=== PATIENT | female | born 1930 | race African-American/Black ===

== ENCOUNTER 2018-03-17 22:21 | Inpatient (IN) | payer MEDICARE ==
[~2018-03-17] VITALS: Ht 152.4 cm; Wt 63.5 kg
[2018-03-18 01:00] VITALS: BP 156/78
[2018-03-18] MEDS ORDERED: Norco 5mg/325mg tab ORAL PRN (02:00)
[2018-03-18 04:00] VITALS: BP 149/65
[2018-03-18 07:25] LABS: BASOPHILS % (AUTO) 0.5 % (0.0-2.0); EOSINOPHILS % (AUTO) 0.4 % (0.0-3.0); HEMATOCRIT 38.4 % (37.0-47.0); HEMOGLOBIN 13.1 G/DL (12.0-16.0); LYMPHOCYTES % (AUTO) 23.9 % (20.0-45.0); MEAN CORPUSCULAR VOLUME 88 FL (80-99); MONOCYTES % (AUTO) 11.8 % (1.0-10.0); NEUTROPHILS % (AUTO) 63.4 % (45.0-75.0); PLATELET COUNT 229 K/UL (150-450); RED BLOOD COUNT 4.34 M/UL (4.20-5.40); RED CELL DISTRIBUTION WIDTH 12.1 % (11.6-14.8); WHITE BLOOD COUNT 6.5 K/UL (4.8-10.8)
[2018-03-18 07:54] LABS: ALANINE AMINOTRANSFERASE 17 U/L (12-78); ALBUMIN 2.9 G/DL (3.4-5.0); ALBUMIN/GLOBULIN RATIO 0.7 (1.0-2.7); ALKALINE PHOSPHATASE 59 U/L (46-116); ANION GAP 9 mmol/L (5-15); ASPARTATE AMINO TRANSFERASE 16 U/L (15-37); BILIRUBIN,TOTAL 0.6 MG/DL (0.2-1.0); BLOOD UREA NITROGEN 23 mg/dL (7-18); CALCIUM 9.2 MG/DL (8.5-10.1); CARBON DIOXIDE 27 MMOL/L (21-32); CHLORIDE 100 MMOL/L (98-107); CHOLESTEROL 163 MG/DL (< 200); CREATININE 0.9 MG/DL (0.55-1.30); HDL CHOLESTEROL 88 MG/DL (40-60); POTASSIUM 3.2 MMOL/L (3.5-5.1); SODIUM 136 MMOL/L (136-145); TRIGLYCERIDES 51 MG/DL (30-150)
[2018-03-18 08:00] VITALS: BP 151/75
[2018-03-18] MEDS: Aspirin Baby 81mg ORAL SCH (08:10)
[2018-03-18] MEDS: Carvedilol 6.25mg Tab ORAL SCH ×2 (08:11→21:00)
[2018-03-18] MEDS ORDERED: Influenza Vaccine Quadrivalent 0.5ml IM ONE (11:00)
[2018-03-18 12:00] VITALS: BP 131/64
[2018-03-18] MEDS: Heparin 5000 units/ml inj SUBQ SCH ×2 (13:58→21:33)
--- NOTE | 2018-03-18 14:21 | Consultation ---
History of Present Illness General Date patient seen: Mar 18, 2018 Present Illness HPI 88 year old female with PMHx of HTN, noncompliant presented to [facility] Emergency Room. The patient has complained of neck pain and headache. The patient was found to have blood pressure elevated to 255/96. she received initial treatment at [facility]. The patient is transferred to [facility] for insurance purposes. she is admitted to telemetry for further treatment. Allergies: Coded Allergies: PENICILLINS (Verified Allergy, Intermediate, Rash, 03/18/18) Medication History Scheduled Aspirin* (Aspirin*), 81 MG ORAL DAILY Carvedilol (Coreg), 12.5 MG ORAL EVERY 12 HOURS Irbesartan* (Avapro*), 75 MG ORAL DAILY Patient History Healthcare decision maker Resuscitation status Full Code Advanced Directive on File No Past Medical/Surgical History Past Medical/Surgical History: (1) History of colon cancer (2) History of hypertension Review of Systems All Other Systems: negative except mentioned in HPI Physical Exam General Appearance: WD/WN Lines, tubes and drains: peripheral HEENT: normocephalic, atraumatic Neck: non-tender, normal alignment Respiratory/Chest: chest wall non-tender, lungs clear Breasts: no masses Cardiovascular/Chest: normal peripheral pulses Abdomen: normal bowel sounds Genitourinary/Rectal: normal genital exam Last 24 Hour Vital Signs Date Time Temp Pulse Resp B/P (MAP) Pulse Ox O2 Delivery O2 Flow Rate FiO2 03/18/18 12:00 54 03/18/18 12:00 97.3 55 19 131/64 (86) 97 97.3 03/18/18 09:00 Room Air 03/18/18 08:11 73 151/75 03/18/18 08:00 98.1 73 20 151/75 (100) 97 98.1 03/18/18 08:00 75 03/18/18 04:00 79 03/18/18 04:00 98.1 76 20 149/65 (93) 97 98.1 03/18/18 02:06 72 03/18/18 01:46 Room Air 03/18/18 01:00 97.9 79 18 156/78 (104) 99 97.9 Laboratory Tests Test 03/18/18 06:15 White Blood Count 6.5 K/UL (4.8-10.8) Red Blood Count 4.34 M/UL (4.20-5.40) Hemoglobin 13.1 G/DL (12.0-16.0) Hematocrit 38.4 % (37.0-47.0) Mean Corpuscular Volume 88 FL (80-99) Mean Corpuscular Hemoglobin 30.2 PG (27.0-31.0) Mean Corpuscular Hemoglobin Concent 34.1 G/DL (32.0-36.0) Red Cell Distribution Width 12.1 % (11.6-14.8) Platelet Count 229 K/UL (150-450) Mean Platelet Volume 7.5 FL (6.5-10.1) Neutrophils (%) (Auto) 63.4 % (45.0-75.0) Lymphocytes (%) (Auto) 23.9 % (20.0-45.0) Monocytes (%) (Auto) 11.8 % (1.0-10.0) H Eosinophils (%) (Auto) 0.4 % (0.0-3.0) Basophils (%) (Auto) 0.5 % (0.0-2.0) Sodium Level 136 MMOL/L (136-145) Potassium Level 3.2 MMOL/L (3.5-5.1) L Chloride Level 100 MMOL/L (98-107) Carbon Dioxide Level 27 MMOL/L (21-32) Anion Gap 9 mmol/L (5-15) Blood Urea Nitrogen 23 mg/dL (7-18) H Creatinine 0.9 MG/DL (0.55-1.30) Estimat Glomerular Filtration Rate mL/min (>60) Glucose Level 118 MG/DL (74-106) H Calcium Level 9.2 MG/DL (8.5-10.1) Phosphorus Level 4.0 MG/DL (2.5-4.9) Magnesium Level 1.8 MG/DL (1.8-2.4) Total Bilirubin 0.6 MG/DL (0.2-1.0) Aspartate Amino Transf (AST/SGOT) 16 U/L (15-37) Alanine Aminotransferase (ALT/SGPT) 17 U/L (12-78) Alkaline Phosphatase 59 U/L (46-116) Troponin I 0.237 ng/mL (0.000-0.056) Total Protein 7.2 G/DL (6.4-8.2) Albumin 2.9 G/DL (3.4-5.0) L Globulin 4.3 g/dL Albumin/Globulin Ratio 0.7 (1.0-2.7) L Triglycerides Level 51 MG/DL (30-150) Cholesterol Level 163 MG/DL (< 200) LDL Cholesterol 54 mg/dL (<100) HDL Cholesterol 88 MG/DL (40-60) H Cholesterol/HDL Ratio 1.9 (3.3-4.4) L Height (Feet): 5 Weight (Pounds): 140 Medications Current Medications Medications (Trade) Dose Ordered Sig/Pj Route PRN Reason Start Time Stop Time Status Last Admin Dose Admin Acetaminophen (Tylenol) 650 mg Q6H PRN ORAL Mild Pain/Temp > 100.5 03/18/18 02:00 04/17/18 01:59 03/18/18 08:11 Acetaminophen/ Hydrocodone Bitart ([place] 5/325) 1 tab Q6H PRN ORAL For Pain 03/18/18 02:00 03/25/18 01:59 Aspirin (ASA) 81 mg DAILY ORAL 03/18/18 09:00 04/17/18 08:59 03/18/18 08:10 Carvedilol (Coreg) 6.25 mg EVERY 12 HOURS ORAL 03/18/18 09:00 04/17/18 08:59 03/18/18 08:11 Heparin Sodium (Porcine) (Heparin 5000 units/ml) 5,000 units EVERY 8 HOURS SUBQ 03/18/18 14:00 04/17/18 13:59 03/18/18 13:58 Hydralazine HCl (Apresoline) 50 mg Q6H PRN ORAL For High Blood Pressure 03/18/18 02:00 04/17/18 01:59 Influenza Virus Vaccine Quadrival (Flu Vaccine Quadrivalent) 0.5 ml ONCE ONCE IM 03/18/18 11:00 03/18/18 11:01 UNV Ondansetron HCl (Zofran) 4 mg Q4H PRN IVP Nausea & Vomiting 03/18/18 02:00 04/17/18 01:59 Assessment/Plan Problem List: (1) Hypertensive urgency ICD Codes: I16.0 - Hypertensive urgency SNOMED: 359637446 (2) ACS (acute coronary syndrome) ICD Codes: I24.9 - Acute ischemic heart disease, unspecified SNOMED: 994888116 (3) History of colon cancer ICD Codes: Z85.038 - Personal history of other malignant neoplasm of large intestine SNOMED: 352090836 (4) History of hypertension ICD Codes: Z86.79 - Personal history of other diseases of the circulatory system SNOMED: 274721187 Assessment/Plan telemetry monitoring monitor BP antihypertensive treatment check CEA b/o hx of colon cancer dvt prophylaxis aspiration precaution Sven Castillo MD Mar 18, 2018 14:21
--- NOTE | 2018-03-18 14:50 | Cardiac Electrophysiology PN ---
Subjective Subjective [id number] Objective Last 24 Hour Vital Signs Date Time Temp Pulse Resp B/P (MAP) Pulse Ox O2 Delivery O2 Flow Rate FiO2 03/18/18 12:00 54 03/18/18 12:00 97.3 55 19 131/64 (86) 97 97.3 03/18/18 09:00 Room Air 03/18/18 08:11 73 151/75 03/18/18 08:00 98.1 73 20 151/75 (100) 97 98.1 03/18/18 08:00 75 03/18/18 04:00 79 03/18/18 04:00 98.1 76 20 149/65 (93) 97 98.1 03/18/18 02:06 72 03/18/18 01:46 Room Air 03/18/18 01:00 97.9 79 18 156/78 (104) 99 97.9 Laboratory Tests Test 03/18/18 06:15 White Blood Count 6.5 K/UL (4.8-10.8) Red Blood Count 4.34 M/UL (4.20-5.40) Hemoglobin 13.1 G/DL (12.0-16.0) Hematocrit 38.4 % (37.0-47.0) Mean Corpuscular Volume 88 FL (80-99) Mean Corpuscular Hemoglobin 30.2 PG (27.0-31.0) Mean Corpuscular Hemoglobin Concent 34.1 G/DL (32.0-36.0) Red Cell Distribution Width 12.1 % (11.6-14.8) Platelet Count 229 K/UL (150-450) Mean Platelet Volume 7.5 FL (6.5-10.1) Neutrophils (%) (Auto) 63.4 % (45.0-75.0) Lymphocytes (%) (Auto) 23.9 % (20.0-45.0) Monocytes (%) (Auto) 11.8 % (1.0-10.0) H Eosinophils (%) (Auto) 0.4 % (0.0-3.0) Basophils (%) (Auto) 0.5 % (0.0-2.0) Sodium Level 136 MMOL/L (136-145) Potassium Level 3.2 MMOL/L (3.5-5.1) L Chloride Level 100 MMOL/L (98-107) Carbon Dioxide Level 27 MMOL/L (21-32) Anion Gap 9 mmol/L (5-15) Blood Urea Nitrogen 23 mg/dL (7-18) H Creatinine 0.9 MG/DL (0.55-1.30) Estimat Glomerular Filtration Rate mL/min (>60) Glucose Level 118 MG/DL (74-106) H Calcium Level 9.2 MG/DL (8.5-10.1) Phosphorus Level 4.0 MG/DL (2.5-4.9) Magnesium Level 1.8 MG/DL (1.8-2.4) Total Bilirubin 0.6 MG/DL (0.2-1.0) Aspartate Amino Transf (AST/SGOT) 16 U/L (15-37) Alanine Aminotransferase (ALT/SGPT) 17 U/L (12-78) Alkaline Phosphatase 59 U/L (46-116) Troponin I 0.237 ng/mL (0.000-0.056) Total Protein 7.2 G/DL (6.4-8.2) Albumin 2.9 G/DL (3.4-5.0) L Globulin 4.3 g/dL Albumin/Globulin Ratio 0.7 (1.0-2.7) L Triglycerides Level 51 MG/DL (30-150) Cholesterol Level 163 MG/DL (< 200) LDL Cholesterol 54 mg/dL (<100) HDL Cholesterol 88 MG/DL (40-60) H Cholesterol/HDL Ratio 1.9 (3.3-4.4) L Tevin Griffiths MD Mar 18, 2018 14:50
[2018-03-18] MEDS ORDERED: Lexiscan 0.4mg/5ml syringe IV ONE (15:00)
[2018-03-18 16:00] VITALS: BP 147/72
[2018-03-18 20:00] VITALS: BP 154/79
--- NOTE | 2018-03-18 20:29 | History & Physical ---
History and Physical History & Physicial Dictated for Int Med-Dr Escoto no. [id number] Adolfo Grove MD Mar 18, 2018 20:29
--- NOTE | 2018-03-18 20:30 | Consultation ---
DATE OF CONSULTATION: 03/18/2018 CONSULTING PHYSICIAN: Tevin Griffiths M.D. REFERRING PHYSICIAN: Dinesh Escoot M.D. REASON FOR CONSULTATION: Accelerated hypertension. HISTORY OF PRESENT ILLNESS: The patient is an 88-year-old lady with history of hypertension presented to the emergency room at [facility] complaining of neck pain and hypertension. The pain started on Thursday, did not have any chest pain. No nausea, vomiting, or diaphoresis. The patient denies prior myocardial infarction or coronary artery disease or congestive heart failure or pacemaker implantation. The patient underwent CT of the neck that showed a small aneurysm of supraclinoid, left ICA. The patient underwent an echocardiogram, which showed ejection fraction of 60%. At the time of my evaluation, the patient denies any chest pain, palpitation, or shortness of breath. remained in sinus rhythm. REVIEW OF SYSTEMS: Review of systems was negative other than what was mentioned in the history of present illness. PAST MEDICAL HISTORY: Hypertension. FAMILY HISTORY: Noncontributory. SOCIAL HISTORY: She lives at home. Does not smoke or drink alcohol. PHYSICAL EXAMINATION: VITAL SIGNS: Show blood pressure of all 131/75, pulse 55, respirations 18, and she is afebrile. HEAD AND NECK: Showed no JVD or carotid bruits. LUNGS: Clear. CARDIOVASCULAR: Shows regular S1 and S2 with no gallop or murmur. ABDOMEN: Soft. EXTREMITIES: No pitting edema. LABORATORY DATA: White count of 6.5, hemoglobin 13, hematocrit 38.5, platelet count of 229. Sodium 135, potassium 3.2, BUN of 23, creatinine 0.9, glucose of 118. Troponin 0.237. ASSESSMENT AND PLAN: 1. Troponin leak. The patient has a mild renal failure, BUN of 23, creatinine 0.9. Echocardiogram showed normal left ventricular systolic function to completely rule out myocardial infarction protocol. Repeat the EKG. The patient on aspirin, beta-michelle, and statin. We will schedule the patient for nuclear stress test. 2. Hypertension, on Coreg 6.25 mg and p.r.n. hydralazine. Thank you very much, Dr. Escoto, for allowing me to participate in the care of this patient. Please do not hesitate to contact me for any questions regarding my evaluation. Tevin Griffiths M.D. DR: Jennifer JOB#: [id number] CC:
[2018-03-18] MEDS: HydrALAZINE 50mg tab ORAL PRN (21:29)
--- NOTE | 2018-03-18 23:30 | Consultation ---
History of Present Illness Present Illness HPI the pt is an 88 yo female with hx of mmp who was admitted for medical stabilization. the pt pw waxing and waning of consciousness. the pt has cognitive impairment and unable to discuss her case/ the pt was anxious. Allergies: Coded Allergies: PENICILLINS (Verified Allergy, Intermediate, Rash, 03/18/18) Medication History Scheduled Aspirin* (Aspirin*), 81 MG ORAL DAILY Carvedilol (Coreg), 12.5 MG ORAL EVERY 12 HOURS Irbesartan* (Avapro*), 75 MG ORAL DAILY Patient History Limited by: medical condition History Provided By: Patient, Medical Record, PMD Healthcare decision maker Resuscitation status Full Code Advanced Directive on File No Past Medical/Surgical History Past Medical/Surgical History: (1) History of hypertension (2) History of colon cancer (3) Hypertensive urgency (4) ACS (acute coronary syndrome) Review of Systems Psychiatric: Reports: prior hx, anxiety, depressed feelings Physical Exam General Appearance: no apparent distress, alert Neurologic: responsive, depressed affect Last 24 Hour Vital Signs Date Time Temp Pulse Resp B/P (MAP) Pulse Ox O2 Delivery O2 Flow Rate FiO2 03/18/18 21:29 154/79 03/18/18 21:00 Room Air 03/18/18 21:00 57 154/79 03/18/18 20:00 57 03/18/18 20:00 97.5 57 20 154/79 (104) 100 97.5 03/18/18 16:00 97.7 60 20 147/72 (97) 100 97.7 03/18/18 16:00 63 03/18/18 12:00 54 03/18/18 12:00 97.3 55 19 131/64 (86) 97 97.3 03/18/18 09:00 Room Air 03/18/18 08:11 73 151/75 03/18/18 08:00 98.1 73 20 151/75 (100) 97 98.1 03/18/18 08:00 75 03/18/18 04:00 79 03/18/18 04:00 98.1 76 20 149/65 (93) 97 98.1 03/18/18 02:06 72 03/18/18 01:46 Room Air 03/18/18 01:00 97.9 79 18 156/78 (104) 99 97.9 Intake and Output 03/17/18 03/18/18 19:00 07:00 # Voids 1 Laboratory Tests Test 03/18/18 06:15 03/18/18 18:38 White Blood Count 6.5 K/UL (4.8-10.8) Red Blood Count 4.34 M/UL (4.20-5.40) Hemoglobin 13.1 G/DL (12.0-16.0) Hematocrit 38.4 % (37.0-47.0) Mean Corpuscular Volume 88 FL (80-99) Mean Corpuscular Hemoglobin 30.2 PG (27.0-31.0) Mean Corpuscular Hemoglobin Concent 34.1 G/DL (32.0-36.0) Red Cell Distribution Width 12.1 % (11.6-14.8) Platelet Count 229 K/UL (150-450) Mean Platelet Volume 7.5 FL (6.5-10.1) Neutrophils (%) (Auto) 63.4 % (45.0-75.0) Lymphocytes (%) (Auto) 23.9 % (20.0-45.0) Monocytes (%) (Auto) 11.8 % (1.0-10.0) H Eosinophils (%) (Auto) 0.4 % (0.0-3.0) Basophils (%) (Auto) 0.5 % (0.0-2.0) Sodium Level 136 MMOL/L (136-145) Potassium Level 3.2 MMOL/L (3.5-5.1) L Chloride Level 100 MMOL/L (98-107) Carbon Dioxide Level 27 MMOL/L (21-32) Anion Gap 9 mmol/L (5-15) Blood Urea Nitrogen 23 mg/dL (7-18) H Creatinine 0.9 MG/DL (0.55-1.30) Estimat Glomerular Filtration Rate mL/min (>60) Glucose Level 118 MG/DL (74-106) H Calcium Level 9.2 MG/DL (8.5-10.1) Phosphorus Level 4.0 MG/DL (2.5-4.9) Magnesium Level 1.8 MG/DL (1.8-2.4) Total Bilirubin 0.6 MG/DL (0.2-1.0) Aspartate Amino Transf (AST/SGOT) 16 U/L (15-37) Alanine Aminotransferase (ALT/SGPT) 17 U/L (12-78) Alkaline Phosphatase 59 U/L (46-116) Troponin I 0.237 ng/mL (0.000-0.056) 0.108 ng/mL (0.000-0.056) Total Protein 7.2 G/DL (6.4-8.2) Albumin 2.9 G/DL (3.4-5.0) L Globulin 4.3 g/dL Albumin/Globulin Ratio 0.7 (1.0-2.7) L Triglycerides Level 51 MG/DL (30-150) Cholesterol Level 163 MG/DL (< 200) LDL Cholesterol 54 mg/dL (<100) HDL Cholesterol 88 MG/DL (40-60) H Cholesterol/HDL Ratio 1.9 (3.3-4.4) L Height (Feet): 5 Weight (Pounds): 140 Medications Current Medications Medications (Trade) Dose Ordered Sig/Pj Route PRN Reason Start Time Stop Time Status Last Admin Dose Admin Acetaminophen (Tylenol) 650 mg Q6H PRN ORAL Mild Pain/Temp > 100.5 03/18/18 02:00 04/17/18 01:59 03/18/18 22:40 Acetaminophen/ Hydrocodone Bitart ([place] 5/325) 1 tab Q6H PRN ORAL For Pain 03/18/18 02:00 03/25/18 01:59 Aspirin (ASA) 81 mg DAILY ORAL 03/18/18 09:00 04/17/18 08:59 03/18/18 08:10 Carvedilol (Coreg) 6.25 mg EVERY 12 HOURS ORAL 03/18/18 09:00 04/17/18 08:59 03/18/18 08:11 Heparin Sodium (Porcine) (Heparin 5000 units/ml) 5,000 units EVERY 8 HOURS SUBQ 03/18/18 14:00 04/17/18 13:59 03/18/18 21:33 Hydralazine HCl (Apresoline) 50 mg Q6H PRN ORAL For High Blood Pressure 03/18/18 02:00 04/17/18 01:59 03/18/18 21:29 Influenza Virus Vaccine Quadrival (Flu Vaccine Quadrivalent) 0.5 ml ONCE ONCE IM 03/18/18 11:00 03/18/18 11:01 UNV Ondansetron HCl (Zofran) 4 mg Q4H PRN IVP Nausea & Vomiting 03/18/18 02:00 04/17/18 01:59 Assessment/Plan Assessment/Plan anxiety d/o cognitive impairment encephalopathy mild Misbah Valdez MD Mar 18, 2018 23:30
[2018-03-19] VITALS: BP 146/77
--- NOTE | 2018-03-19 01:00 | History and Physical Report ---
DATE OF ADMISSION: 03/18/2018 CHIEF COMPLAINT: The patient is an 88-year-old female, who presents with chief complaint of headache, neck pain and "blood pressure problem." HISTORY OF PRESENT ILLNESS: The patient initially presented to [facility] Emergency Room. The patient has complained of neck pain and headache. The patient also states she has "blood pressure problem." The patient states that the severe neck pain began on 03/12/2018. It has been increasing over the last week. The patient presented initially to [facility] Emergency Room. The patient was found to have blood pressure elevated to 255/96. The patient received initial treatment at [facility]. The patient is transferred to [facility] for insurance purposes. The patient is admitted for hypertensive emergency. REVIEW OF SYSTEMS: CONSTITUTIONAL: The patient denies weight loss or weight gain. The patient denies fevers or chills. HEENT: The patient complains of headache as above. The patient complains of left-sided neck pain as above. CHEST: The patient denies wheeze or shortness of breath. CARDIOVASCULAR: The patient denies palpitations or chest pain. ABDOMEN: The patient denies nausea, vomiting, diarrhea, or constipation. GENITOURINARY: The patient denies dysuria or increased frequency of urination. NEUROMUSCULAR: The patient denies seizures or generalized weakness. PAST MEDICAL HISTORY: Significant for hypertension. PAST SURGICAL HISTORY: The patient denies. CURRENT MEDICATIONS: The patient denies. ALLERGIES: Penicillin. SOCIAL HISTORY: The patient is and lives alone. The patient denies tobacco or alcohol use. PHYSICAL EXAMINATION: VITAL SIGNS: Temperature 99.0, respirations 17 to 18, pulse 60 to 74, and blood pressure 255/96. GENERAL: The patient is a well-developed and well-nourished female, in no apparent distress. HEENT: Eyes, pupils are equal and responsive to light and accommodation. Extraocular movements are intact. NECK: Supple without lymphadenopathy. CHEST: Lungs are clear to auscultation bilaterally without wheezes or rales. CARDIOVASCULAR: Regular rhythm and rate. S1 and S2 normal without murmurs, rubs, or gallops. ABDOMEN: Soft, nontender, and nondistended. No evidence of hepatosplenomegaly. Currently, no rebound or guarding noted. EXTREMITIES: Negative for clubbing, cyanosis, or edema. RECTAL/GENITAL: Refused. NEUROLOGICAL: Cranial nerves II through XII are grossly intact without focal deficits. Motor strength is 5/5 bilaterally. Deep tendon reflexes are 2+ plantar. LABORATORY STUDIES: WBC is 6.4, hemoglobin 13.5, hematocrit 40.2, and platelets 196,000. Sodium 135, potassium 3.7, chloride 100, CO2 24, BUN 16, and creatinine 0.8. Glucose 111. A CT scan of the neck and brain revealed two of the left internal carotid artery, which may represent small aneurysms versus chronic infundibulum. ASSESSMENT: This is an 88-year-old female with: 1. Hypertensive emergency. 2. Headache. 3. Neck pain. TREATMENT: 1. Hypertensive emergency. The patient has been started empirically on carvedilol and hydralazine. Clonidine will be used p.r.n. A Cardiology consultation has been obtained with Dr. Frankel. 2. Headache/neck pain. This is probably secondary to hypertensive urgency as above. Adolfo Grove M.D. DR: VIOLA JOB#: [id number] CC:
[2018-03-19 04:00] VITALS: BP 186/88
[2018-03-19 04:45] LABS: BASOPHILS % (AUTO) 0.5 % (0.0-2.0); EOSINOPHILS % (AUTO) 1.4 % (0.0-3.0); HEMATOCRIT 38.4 % (37.0-47.0); HEMOGLOBIN 12.8 G/DL (12.0-16.0); LYMPHOCYTES % (AUTO) 43.2 % (20.0-45.0); MEAN CORPUSCULAR VOLUME 90 FL (80-99); MONOCYTES % (AUTO) 8.6 % (1.0-10.0); NEUTROPHILS % (AUTO) 46.4 % (45.0-75.0); PLATELET COUNT 224 K/UL (150-450); RED BLOOD COUNT 4.25 M/UL (4.20-5.40); RED CELL DISTRIBUTION WIDTH 12.4 % (11.6-14.8); WHITE BLOOD COUNT 4.8 K/UL (4.8-10.8)
[2018-03-19 05:07] LABS: ALANINE AMINOTRANSFERASE 21 U/L (12-78); ALBUMIN 2.8 G/DL (3.4-5.0); ALBUMIN/GLOBULIN RATIO 0.7 (1.0-2.7); ALKALINE PHOSPHATASE 64 U/L (46-116); ANION GAP 6 mmol/L (5-15); ASPARTATE AMINO TRANSFERASE 23 U/L (15-37); BILIRUBIN,TOTAL 0.6 MG/DL (0.2-1.0); BLOOD UREA NITROGEN 27 mg/dL (7-18); CALCIUM 9.2 MG/DL (8.5-10.1); CARBON DIOXIDE 28 MMOL/L (21-32); CHLORIDE 104 MMOL/L (98-107); CREATININE 1.2 MG/DL (0.55-1.30); PHOSPHORUS 3.9 MG/DL (2.5-4.9); POTASSIUM 4.3 MMOL/L (3.5-5.1); SODIUM 138 MMOL/L (136-145)
[2018-03-19] MEDS: HydrALAZINE 50mg tab ORAL PRN (05:28)
[2018-03-19] MEDS: Heparin 5000 units/ml inj SUBQ SCH ×2 (05:35→13:23)
[2018-03-19 07:46] VITALS: BP 149/79
[2018-03-19] MEDS: Aspirin Baby 81mg ORAL SCH (09:00)
--- NOTE | 2018-03-19 09:02 | Cardiac Electrophysiology PN ---
Assessment/Plan Assessment/Plan 1. Troponin leak. Levels low and flat. The patient has a mild renal failure, BUN of 23, creatinine 0.9. Echocardiogram showed normal left ventricular systolic function No CP. The patient on aspirin, beta-michelle, and statin. Nuclear stress test pending today. 2. Hypertension, increase Coreg to 12.5 mg bid DW RN Subjective Subjective Getting ready for the stress test. Remained in SR Objective Last 24 Hour Vital Signs Date Time Temp Pulse Resp B/P (MAP) Pulse Ox O2 Delivery O2 Flow Rate FiO2 03/19/18 07:46 97.2 52 24 149/79 (102) 99 97.2 03/19/18 05:28 185/77 03/19/18 04:00 97.0 55 24 186/88 (120) 99 97.0 03/19/18 04:00 55 03/19/18 00:00 62 03/19/18 00:00 97.3 63 20 146/77 (100) 99 97.3 03/18/18 21:29 154/79 03/18/18 21:00 Room Air 03/18/18 21:00 57 154/79 03/18/18 20:00 57 03/18/18 20:00 97.5 57 20 154/79 (104) 100 97.5 03/18/18 16:00 97.7 60 20 147/72 (97) 100 97.7 03/18/18 16:00 63 03/18/18 12:00 54 03/18/18 12:00 97.3 55 19 131/64 (86) 97 97.3 03/18/18 09:00 Room Air Intake and Output 03/18/18 03/19/18 19:00 07:00 Intake Total 9950 ml Balance 9950 ml Intake Oral 9950 ml # Voids 2 1 Laboratory Tests Test 03/18/18 18:38 03/19/18 03:00 Troponin I 0.108 ng/mL (0.000-0.056) 0.078 ng/mL (0.000-0.056) White Blood Count 4.8 K/UL (4.8-10.8) Red Blood Count 4.25 M/UL (4.20-5.40) Hemoglobin 12.8 G/DL (12.0-16.0) Hematocrit 38.4 % (37.0-47.0) Mean Corpuscular Volume 90 FL (80-99) Mean Corpuscular Hemoglobin 30.1 PG (27.0-31.0) Mean Corpuscular Hemoglobin Concent 33.3 G/DL (32.0-36.0) Red Cell Distribution Width 12.4 % (11.6-14.8) Platelet Count 224 K/UL (150-450) Mean Platelet Volume 7.5 FL (6.5-10.1) Neutrophils (%) (Auto) 46.4 % (45.0-75.0) Lymphocytes (%) (Auto) 43.2 % (20.0-45.0) Monocytes (%) (Auto) 8.6 % (1.0-10.0) Eosinophils (%) (Auto) 1.4 % (0.0-3.0) Basophils (%) (Auto) 0.5 % (0.0-2.0) Erythrocyte Sedimentation Rate 46 MM/HR (0-30) H Sodium Level 138 MMOL/L (136-145) Potassium Level 4.3 MMOL/L (3.5-5.1) Chloride Level 104 MMOL/L (98-107) Carbon Dioxide Level 28 MMOL/L (21-32) Anion Gap 6 mmol/L (5-15) Blood Urea Nitrogen 27 mg/dL (7-18) H Creatinine 1.2 MG/DL (0.55-1.30) Estimat Glomerular Filtration Rate mL/min (>60) Glucose Level 101 MG/DL (74-106) Calcium Level 9.2 MG/DL (8.5-10.1) Phosphorus Level 3.9 MG/DL (2.5-4.9) Magnesium Level 1.7 MG/DL (1.8-2.4) L Total Bilirubin 0.6 MG/DL (0.2-1.0) Aspartate Amino Transf (AST/SGOT) 23 U/L (15-37) Alanine Aminotransferase (ALT/SGPT) 21 U/L (12-78) Alkaline Phosphatase 64 U/L (46-116) Total Protein 7.1 G/DL (6.4-8.2) Albumin 2.8 G/DL (3.4-5.0) L Globulin 4.3 g/dL Albumin/Globulin Ratio 0.7 (1.0-2.7) L Objective HEAD AND NECK: No JVD LUNGS: Clear. CARDIOVASCULAR: Regular S1 and S2 with no gallop or murmur. ABDOMEN: Soft. EXTREMITIES: No pitting edema. Tevin Griffiths MD Mar 19, 2018 09:02
[2018-03-19] MEDS ORDERED: Lexiscan 0.4mg/5ml syringe IV SCH (09:08)
--- NOTE | 2018-03-19 11:25 | Pulmonology Progress Note ---
Assessment/Plan Problems: (1) ACS (acute coronary syndrome) (2) Hypertensive urgency (3) History of colon cancer (4) History of hypertension Assessment/Plan stress test today check CEA symptomatic treatment dvt prophylaxis Subjective ROS Limited/Unobtainable: No Constitutional: Reports: no symptoms HEENT: Repors: no symptoms Respiratory: Reports: no symptoms Allergies: Coded Allergies: PENICILLINS (Verified Allergy, Intermediate, Rash, 03/18/18) Objective Last 24 Hour Vital Signs Date Time Temp Pulse Resp B/P (MAP) Pulse Ox O2 Delivery O2 Flow Rate FiO2 03/19/18 09:00 Room Air 03/19/18 08:00 54 03/19/18 07:46 97.2 52 24 149/79 (102) 99 97.2 03/19/18 05:28 185/77 03/19/18 04:00 97.0 55 24 186/88 (120) 99 97.0 03/19/18 04:00 55 03/19/18 00:00 62 03/19/18 00:00 97.3 63 20 146/77 (100) 99 97.3 03/18/18 21:29 154/79 03/18/18 21:00 Room Air 03/18/18 21:00 57 154/79 03/18/18 20:00 57 03/18/18 20:00 97.5 57 20 154/79 (104) 100 97.5 03/18/18 16:00 97.7 60 20 147/72 (97) 100 97.7 03/18/18 16:00 63 03/18/18 12:00 54 03/18/18 12:00 97.3 55 19 131/64 (86) 97 97.3 Intake and Output 03/18/18 03/19/18 19:00 07:00 Intake Total 9950 ml Balance 9950 ml Intake Oral 9950 ml # Voids 2 1 General Appearance: cachetic HEENT: normocephalic, atraumatic Respiratory/Chest: chest wall non-tender, lungs clear, normal breath sounds Breasts: no masses Cardiovascular: normal peripheral pulses Abdomen: normal bowel sounds, soft, non tender Extremities: no cyanosis, no clubbing Neurologic/Psychiatric: no motor/sensory deficits Laboratory Tests 03/18/18 18:38: Troponin I 0.108H 03/19/18 03:00: Troponin I 0.078H, White Blood Count 4.8, Red Blood Count 4.25, Hemoglobin 12.8 , Hematocrit 38.4, Mean Corpuscular Volume 90, Mean Corpuscular Hemoglobin 30.1 , Mean Corpuscular Hemoglobin Concent 33.3, Red Cell Distribution Width 12.4, Platelet Count 224, Mean Platelet Volume 7.5, Neutrophils (%) (Auto) 46.4, Lymphocytes (%) (Auto) 43.2, Monocytes (%) (Auto) 8.6, Eosinophils (%) (Auto) 1.4, Basophils (%) (Auto) 0.5, Erythrocyte Sedimentation Rate 46H, Sodium Level 138, Potassium Level 4.3, Chloride Level 104, Carbon Dioxide Level 28, Anion Gap 6, Blood Urea Nitrogen 27H, Creatinine 1.2, Estimat Glomerular Filtration Rate , Glucose Level 101, Calcium Level 9.2, Phosphorus Level 3.9, Magnesium Level 1.7L, Total Bilirubin 0.6, Aspartate Amino Transf (AST/SGOT) 23, Alanine Aminotransferase (ALT/SGPT) 21, Alkaline Phosphatase 64, Total Protein 7.1, Albumin 2.8L, Globulin 4.3, Albumin/Globulin Ratio 0.7L Current Medications Medications (Trade) Dose Ordered Sig/Pj Route PRN Reason Start Time Stop Time Status Last Admin Dose Admin Acetaminophen (Tylenol) 650 mg Q6H PRN ORAL Mild Pain/Temp > 100.5 03/18/18 02:00 04/17/18 01:59 03/18/18 22:40 Acetaminophen/ Hydrocodone Bitart ([place] 5/325) 1 tab Q6H PRN ORAL For Pain 03/18/18 02:00 03/25/18 01:59 03/19/18 05:28 Aspirin (ASA) 81 mg DAILY ORAL 03/18/18 09:00 04/17/18 08:59 03/19/18 09:00 Carvedilol (Coreg) 12.5 mg EVERY 12 HOURS ORAL 03/19/18 21:00 04/17/18 08:59 Heparin Sodium (Porcine) (Heparin 5000 units/ml) 5,000 units EVERY 8 HOURS SUBQ 03/18/18 14:00 04/17/18 13:59 03/19/18 05:35 Hydralazine HCl (Apresoline) 50 mg Q6H PRN ORAL For High Blood Pressure 03/18/18 02:00 04/17/18 01:59 03/19/18 05:28 Ondansetron HCl (Zofran) 4 mg Q4H PRN IVP Nausea & Vomiting 03/18/18 02:00 04/17/18 01:59 Regadenoson (Lexiscan) 0.4 mg ONCE IV 03/19/18 09:08 03/19/18 23:59 Sven Castillo MD Mar 19, 2018 11:24
[2018-03-19] MEDS ORDERED: Norco 5mg/325mg tab ORAL PRN (11:30)
[2018-03-19] MEDS ORDERED: HYDROcodone/Acetamin 10/325 tab ORAL PRN (11:30)
[2018-03-19 12:00] VITALS: BP 135/76
--- NOTE | 2018-03-19 14:21 | Diagnostic Imaging Report ---
Indications: Chest pain Technique: Single day single isotope protocol utilized. Initially, resting images obtained using IV administration 3.0 millicuries 99M technetium Myoview. Subsequently, patient underwent lexiscan stress testing. See cardiology report for details. During Lexiscan infusion, IV administration 32.4 mCi 99 M technetium Myoview. SPECT and planar images obtained. SPECT images gated to 8 phases of the cardiac cycle were also obtained, and reformatted into cine images for evaluation of ejection fraction. Comparison: none Findings: Is or absence of symptoms during infusion is not described in the cardiology report. Per cardiology report, resting EKG demonstrates sinus bradycardia. On old report describes axillary junctional rhythm after Lexiscan injection, does not report presence or absence of ST changes. Imaging demonstrates normal poststress perfusion, no fixed nor reversible perfusion defects. Normal cardiac chamber size. Calculated post stress ejection fraction 69%. No focal wall motion abnormality Impression: Nonischemic clinical response to pharmacologic stress, per cardiology report Nonischemic electrocardiographic response to pharmacologic stress, per cardiology report No imaging findings to suggest ischemia, at level of stress achieved. Calculated post stress ejection fraction 69%
[2018-03-19] MEDS ORDERED: COREG12.5 MG ORAL (15:45)
[2018-03-19] MEDS ORDERED: AVAPRO75 MG ORAL (15:45)
[2018-03-19] MEDS ORDERED: ASPIRIN81 MG ORAL (15:45)
--- NOTE | 2018-03-19 15:50 | Discharge Summary ---
Discharge Summary Hospital Course Date of Admission Mar 18, 2018 at 00:31 Date of Discharge Admitting Diagnosis HPI Felipa Box is a 88 year old female who was admitted on Mar 18, 2018 at 00:31 for Hypertension Crisis Hospital Course Current Medications Medications (Trade) Dose Ordered Sig/Pj Route PRN Reason Start Time Stop Time Status Last Admin Dose Admin Acetaminophen (Tylenol) 650 mg Q6H PRN ORAL Mild Pain/Temp > 100.5 03/18/18 02:00 04/17/18 01:59 03/18/18 22:40 Acetaminophen/ Hydrocodone Bitart ([place] 10/325) 1 tab Q4H PRN ORAL Severe Pain (Pain Scale 7-10) 03/19/18 11:30 03/26/18 11:29 Acetaminophen/ Hydrocodone Bitart ([place] 5/325) 1 tab Q6H PRN ORAL Moderate Pain (Pain Scale 4-6) 03/19/18 11:30 03/26/18 11:29 Aspirin (ASA) 81 mg DAILY ORAL 03/18/18 09:00 04/17/18 08:59 03/19/18 09:00 Carvedilol (Coreg) 12.5 mg EVERY 12 HOURS ORAL 03/19/18 21:00 04/17/18 08:59 Heparin Sodium (Porcine) (Heparin 5000 units/ml) 5,000 units EVERY 8 HOURS SUBQ 03/18/18 14:00 04/17/18 13:59 03/19/18 13:23 Hydralazine HCl (Apresoline) 50 mg Q6H PRN ORAL For High Blood Pressure 03/18/18 02:00 04/17/18 01:59 03/19/18 05:28 Influenza Virus Vaccine Quadrival (Flu Vaccine Quadrivalent) 0.5 ml ONCE ONCE IM 03/19/18 16:00 03/19/18 16:01 Ondansetron HCl (Zofran) 4 mg Q4H PRN IVP Nausea & Vomiting 03/18/18 02:00 04/17/18 01:59 Regadenoson (Lexiscan) 0.4 mg ONCE IV 03/19/18 09:08 03/19/18 23:59 Last 24 Hour Vital Signs Date Time Temp Pulse Resp B/P (MAP) Pulse Ox O2 Delivery O2 Flow Rate FiO2 03/19/18 12:00 62 03/19/18 12:00 98.0 79 19 135/76 (95) 98 98.0 03/19/18 09:00 Room Air 03/19/18 08:00 54 03/19/18 07:46 97.2 52 24 149/79 (102) 99 97.2 03/19/18 05:28 185/77 03/19/18 04:00 97.0 55 24 186/88 (120) 99 97.0 03/19/18 04:00 55 03/19/18 00:00 62 03/19/18 00:00 97.3 63 20 146/77 (100) 99 97.3 03/18/18 21:29 154/79 03/18/18 21:00 Room Air 03/18/18 21:00 57 154/79 03/18/18 20:00 57 03/18/18 20:00 97.5 57 20 154/79 (104) 100 97.5 03/18/18 16:00 97.7 60 20 147/72 (97) 100 97.7 03/18/18 16:00 63 Physical Exam General: No acute distress, awake and alert HEENT: NCAT, sclera anicteric, PERRL, EOMI. Neck: Supple, no significant jugular venous distention, Lungs: Good inspiratory effort, no accessory muscle use, no Wheeze or Rales. Heart: Regular rate and rhythm, normal S1/S2, no murmurs/gallops Abdomen: soft, nontender, nondistended. Normoactive bowel sounds. / Rectal: Refused and deferred. Extremities: No Cyanosis , clubbing or edema. Neuro: A&O x 3, Able to move all extremities Skin: warm, no rashes or lesions Psych: Normal mood and affect Labs Test 03/18/18 06:15 03/18/18 18:38 03/19/18 03:00 White Blood Count 6.5 K/UL (4.8-10.8) 4.8 K/UL (4.8-10.8) Red Blood Count 4.34 M/UL (4.20-5.40) 4.25 M/UL (4.20-5.40) Hemoglobin 13.1 G/DL (12.0-16.0) 12.8 G/DL (12.0-16.0) Hematocrit 38.4 % (37.0-47.0) 38.4 % (37.0-47.0) Mean Corpuscular Volume 88 FL (80-99) 90 FL (80-99) Mean Corpuscular Hemoglobin 30.2 PG (27.0-31.0) 30.1 PG (27.0-31.0) Mean Corpuscular Hemoglobin Concent 34.1 G/DL (32.0-36.0) 33.3 G/DL (32.0-36.0) Red Cell Distribution Width 12.1 % (11.6-14.8) 12.4 % (11.6-14.8) Platelet Count 229 K/UL (150-450) 224 K/UL (150-450) Mean Platelet Volume 7.5 FL (6.5-10.1) 7.5 FL (6.5-10.1) Neutrophils (%) (Auto) 63.4 % (45.0-75.0) 46.4 % (45.0-75.0) Lymphocytes (%) (Auto) 23.9 % (20.0-45.0) 43.2 % (20.0-45.0) Monocytes (%) (Auto) 11.8 % (1.0-10.0) 8.6 % (1.0-10.0) Eosinophils (%) (Auto) 0.4 % (0.0-3.0) 1.4 % (0.0-3.0) Basophils (%) (Auto) 0.5 % (0.0-2.0) 0.5 % (0.0-2.0) Sodium Level 136 MMOL/L (136-145) 138 MMOL/L (136-145) Potassium Level 3.2 MMOL/L (3.5-5.1) 4.3 MMOL/L (3.5-5.1) Chloride Level 100 MMOL/L (98-107) 104 MMOL/L (98-107) Carbon Dioxide Level 27 MMOL/L (21-32) 28 MMOL/L (21-32) Anion Gap 9 mmol/L (5-15) 6 mmol/L (5-15) Blood Urea Nitrogen 23 mg/dL (7-18) 27 mg/dL (7-18) Creatinine 0.9 MG/DL (0.55-1.30) 1.2 MG/DL (0.55-1.30) Estimat Glomerular Filtration Rate mL/min (>60) mL/min (>60) Glucose Level 118 MG/DL (74-106) 101 MG/DL (74-106) Calcium Level 9.2 MG/DL (8.5-10.1) 9.2 MG/DL (8.5-10.1) Phosphorus Level 4.0 MG/DL (2.5-4.9) 3.9 MG/DL (2.5-4.9) Magnesium Level 1.8 MG/DL (1.8-2.4) 1.7 MG/DL (1.8-2.4) Total Bilirubin 0.6 MG/DL (0.2-1.0) 0.6 MG/DL (0.2-1.0) Aspartate Amino Transf (AST/SGOT) 16 U/L (15-37) 23 U/L (15-37) Alanine Aminotransferase (ALT/SGPT) 17 U/L (12-78) 21 U/L (12-78) Alkaline Phosphatase 59 U/L (46-116) 64 U/L (46-116) Troponin I 0.237 ng/mL (0.000-0.056) 0.108 ng/mL (0.000-0.056) 0.078 ng/mL (0.000-0.056) Total Protein 7.2 G/DL (6.4-8.2) 7.1 G/DL (6.4-8.2) Albumin 2.9 G/DL (3.4-5.0) 2.8 G/DL (3.4-5.0) Globulin 4.3 g/dL 4.3 g/dL Albumin/Globulin Ratio 0.7 (1.0-2.7) 0.7 (1.0-2.7) Triglycerides Level 51 MG/DL (30-150) Cholesterol Level 163 MG/DL (< 200) LDL Cholesterol 54 mg/dL (<100) HDL Cholesterol 88 MG/DL (40-60) Cholesterol/HDL Ratio 1.9 (3.3-4.4) Erythrocyte Sedimentation Rate 46 MM/HR (0-30) Discharge Discharge Disposition Patient was discharged to Dinesh Escoto MD Mar 19, 2018 15:50
[2018-03-19 16:00] VITALS: BP 130/71
[2018-03-19] MEDS ORDERED: Influenza Vaccine Quadrivalent 0.5ml IM ONE (16:00)
[2018-03-19] MEDS ORDERED: Carvedilol 12.5mg tab ORAL SCH (21:00)
--- NOTE | 2018-03-19 21:15 | Discharge Summary ---
DATE OF ADMISSION: 03/18/2018 DATE OF DISCHARGE: 03/19/2018 HISTORY OF PRESENT ILLNESS: This is an 88-year-old very delightful female with past medical history significant for hypertension, who presented to the [facility] after he was noted to have elevated blood pressure. Shortly after initial evaluation, he was noted to have blood pressure of 255/96 and the patient subsequently was transferred to the [facility] with hypertensive urgency. Throughout the hospital course, the patient was consulted with Dr. Tevin Griffiths from Cardiology, Dr. Valdez from Psychiatry, Dr. Castillo, Pulmonary/Critical Care. Had an echocardiogram done and was essentially unremarkable with echo noted the patient to have ejection fraction of 60% with no evidence of pericardial effusion, mild thickening of mitral valve leaflets with normal excursion, normal pulmonary valvular structure, normal tricuspid valvular structure. The patient subsequently had a stress done, Lexiscan nuclear stress test nonischemic. Myocardial perfusion images result is as follows, nonischemic, accelerated junction rhythm noted after the Marie injection. The patient tolerated procedure well and subsequently was discharged home today to be followed up as an outpatient in my office within one week. FINAL DIAGNOSES: 1. Accelerated hypertensive urgency. 2. Neck pain. 3. Headache. PLAN: I will advise the patient to follow up my office within one week. Dinesh Escoto M.D. DR: Live JOB#: [id number] CC:
--- NOTE | 2018-03-22 07:36 | Cardiology Report ---
APPROVED REPORT EXAM: Two-dimensional and M-mode echocardiogram with Doppler and color Doppler. INDICATION Hypertension/HCVD M-Mode DIMENSIONS IVSd1.8 (0.7-1.1cm)Left Atrium (MM)2.8 (1.6-4.0cm) LVDd2.6 (3.5-5.6cm)Aortic Root2.8 (2.0-3.7cm) PWd1.8 (0.7-1.1cm)Aortic Cusp Exc.1.6 (1.5-2.0cm) LVDs1.6 (2.5-4.0cm) PWs2.3 cm Normal left ventricular chamber size, systolic function and wall motion. Left ventricular ejection fraction estimated to be 60 %. Mild left ventricular hypertrophy. No evidence of pericardial effusion. All other cardiac chamber sizes are within normal limits. Focal aortic valve sclerosis with adequate cusp excursion. Mildly thickened mitral valve leaflets with normal excursion. Mild mitral annulus and aortic root calcification. Normal pulmonic valve structure. Normal tricuspid valve structure. IVC is normal in size with physiological collapse. A color flow and spectral Doppler study was performed and revealed: Mild aortic insufficiency. Mild mitral regurgitation. Mitral diastolic velocities suggest mild left ventricular diastolic dysfunction (Grade I). Mild tricuspid regurgitation. Tricuspid systolic velocities suggests peak right ventricular systolic pressure of 33 mmHg. Mild pulmonic regurgitation present.
--- NOTE | 2018-03-22 14:54 | Cardiology Report ---
APPROVED REPORT EKG Measurement Heart [id number] Sinus bradycardia Otherwise normal ECG
== END 2018-03-19 18:40 | disposition home or self-care (01) | DRG 305 ==
LOC: 2E 03-18 00:31
DX: I16.0 Hypertensive urgency (principal); M54.2 Cervicalgia; R51 Headache; Z88.0 Allergy status to penicillin; I10 Essential (primary) hypertension; Z85.038 Personal history of other malignant neoplasm of large intestine; Z23 Encounter for immunization
CPT/HCPCS: 36415; 78452; 80053; 80061; 82378; 83735; 84100; 84484; 85025; 85651; 90630; 93005; 93017; 93306; 93880; J2785; J8499